=== PATIENT | male | born 1970 | race Caucasian/White ===

== ENCOUNTER 2019-08-17 14:27 | Outpatient (CLI) | payer MEDICARE, MEDICAID ==
[~2019-08-17 14:27] MED LIST: COL100C PO
== END 2019-08-17 23:59 | disposition home or self-care (01) ==
LOC: VAS 14:27
DX: M79.605 Pain in left leg (principal); R60.0 Localized edema; Z87.891 Personal history of nicotine dependence
CPT/HCPCS: 93971

== ENCOUNTER 2025-08-14 14:29 | Outpatient (CLI) | payer MEDICARE, MEDICAID ==
--- NOTE | 2025-08-14 15:26 | RADIOLOGY REPORT ---
CLINICAL HISTORY: ABDOMINAL PAIN TECHNIQUE: CT of the abdomen and pelvis was performed without IV contrast. This exam was performed according to our departmental dose optimization program. Up-to-date CT equipment and radiation dose reduction techniques are utilized as appropriate. CTDI 22 DLP 1260 COMPARISON: None FINDINGS: Abdomen/Pelvis: The spleen, pancreas, gallbladder, and adrenal glands are grossly unremarkable. The bladder is mildly distended with no focal wall thickening. The prostate gland is moderately enlarged, measuring 5 cm in diameter. There is diffuse hepatic steatosis. A horseshoe kidney is noted. The abdominal aorta is normal in course and caliber. There are no significant atherosclerotic calcifications. There is no free intraperitoneal air or fluid. There is mild inflammation within the mesentery. There is no enlarged abdominal pelvic lymph node. There is no bowel wall thickening or dilatation. The appendix is normal. Other: The imaged lower thorax demonstrates mild breathing changes and minimal atelectasis at both lung bases. There are coronary artery calcifications. No acute osseous abnormality is evident. Impression: No acute noncontrast CT abnormality in the abdomen and pelvis. Horseshoe kidney. Diffuse hepatic steatosis. Mild mesenteric panniculitis. Mild prostatomegaly.
== END 2025-08-14 23:59 | disposition home or self-care (01) ==
LOC: 64 CT 14:29
PROVIDERS: ATTEND Family Medicine
DX: K76.0 Fatty (change of) liver, not elsewhere classified (principal); R10.9 Unspecified abdominal pain; Q63.1 Lobulated, fused and horseshoe kidney; I25.10 Atherosclerotic heart disease of native coronary artery without angina pectoris; N40.0 Benign prostatic hyperplasia without lower urinary tract symptoms; M79.3 Panniculitis, unspecified
CPT/HCPCS: 74176

== ENCOUNTER 2025-08-22 11:15 | Outpatient (CLI) | payer MEDICARE, MEDICAID ==
--- NOTE | 2025-08-22 13:11 | RADIOLOGY REPORT ---
EXAM: CT CT LOWER EXTREMITY W/ IV CONTRAST INDICATION: PAIN IN LEFT LOWER LEG TECHNIQUE: Axial images of left lower extremity have been obtained along with coronal and sagittal reformatted images. All CT scans at this facility use dose modulation, iterative reconstruction, and/or weight based dosing when appropriate to reduce radiation dose to as low as reasonably achievable. COMPARISON: None FINDINGS: BONES: No CT evidence of an acute fracture or aggressive osseous lesion. Question small amount of subcutaneous adipose tissue edema along the anterior medial aspect of the tibial diaphysis which may reflect small amount of periosteal edema versus within normal limits versus subcutaneous adipose tissue edema correlate with clinical exam to exclude medial tibial stress syndrome. MUSCLES: No abnormal attenuation. JOINT SPACES: No joint effusion. TENDONS/LIGAMENTS: Intact. OTHER: In regards to the clinical question, no discrete abnormal soft tissue mass. IMPRESSION: 1. Question small amount of subcutaneous adipose tissue edema along the anterior medial aspect of the tibial diaphysis which may reflect small amount of periosteal edema versus within normal limits versus subcutaneous adipose tissue edema correlate with clinical exam to exclude medial tibial stress syndrome. 2. In regards to the clinical question, no discrete abnormal soft tissue mass.
== END 2025-08-22 23:59 | disposition home or self-care (01) ==
LOC: RAD 11:15
PROVIDERS: ATTEND Family Medicine
DX: M79.662 Pain in left lower leg (principal)
CPT/HCPCS: 73702; Q9967

== ENCOUNTER 2025-09-04 15:38 | Outpatient (CLI) | payer MEDICARE, MEDICAID ==
[2025-09-04] MEDS ORDERED: GADOTERATE MEGLUMINE 7.5 MMOL/15 ML VIAL IV ONE (17:45)
--- NOTE | 2025-09-04 17:50 | RADIOLOGY REPORT ---
EXAM: MR MRI LOWER EXTREMITY LEFT INDICATION: PAIN IN LEFT LEG TECHNIQUE: Multiplanar, multisequence imaging of the left lower extremity/ calf with and without contrast. 15 ML of Clariscan gadolinium contrast. COMPARISON: None FINDINGS: BONES: No MR evidence of an acute fracture, osseous contusion, or aggressive focal osseous lesion. In regards to the clinical question, no definitive MR evidence of medial tibial stress syndrome. No abnormal intra cortical signal. No abnormal intramedullary signal. MUSCLES: Abnormal muscle edema without abnormal enhancement of the superior aspect of the medial soleus and minimally of the medial and lateral heads of the gastrocnemius. Trace intermuscular fascial edema in between the soleus and medial head of the gastrocnemius. Correlate for muscle strains. TENDONS: Intact. LIGAMENTS: Intact. JOINT SPACES: No joint effusion. NEUROVASCULAR: Normal. OTHER: None. IMPRESSION: 1. Abnormal muscle edema without abnormal enhancement of the superior aspect of the medial soleus and minimally of the medial and lateral heads of the gastrocnemius. Trace intermuscular fascial edema in between the soleus and medial head of the gastrocnemius. Correlate for muscle strains.
== END 2025-09-04 23:59 | disposition home or self-care (01) ==
LOC: MRI 15:38
PROVIDERS: ATTEND Family Medicine
DX: M79.605 Pain in left leg (principal); R60.0 Localized edema
CPT/HCPCS: 73720; A9575